=== PATIENT | female | born 1950 | race Caucasian/White ===

== ENCOUNTER 2023-12-19 04:46 | Emergency (ER) | payer MEDICARE ==
[2023-12-19 06:07] LABS: Hematocrit 31.5 % (34.9-44.5); Hemoglobin 9.7 g/dL (12.0-15.5); Mean Corpuscular HGB CONC 30.8 g/dL (32.0-36.0); Mean Corpuscular Volume 94.3 fl (81.6-98.3); Mean Platelet Volume 13.2 fl (7.4-10.4); Platelet Count 231 10x3/uL (150-450); Red Blood Cell (RBC) Count 3.34 10x6/uL (3.90-5.03); White Blood Cell (WBC) Count 31.9 10x3/uL (3.5-10.5)
[2023-12-19 06:09] LABS: ALT (SGPT) Less than 7 U/L (8-55); AST (SGOT) 13 U/L (5-34); Albumin 1.9 g/dL (3.4-4.8); Alkaline Phosphatase 460 U/L (40-110); Anion Gap 15 mmol/L (10-20); BUN (Urea Nitrogen) 44 mg/dL (9.8-20.1); Bilirubin, Total 0.3 mg/dL (0.2-1.2); Calc. Creatinine Clearance 0 mL/min (70-130); Calcium 8.1 mg/dL (7.8-10.44); Carbon Dioxide 11 mmol/L (23-31); Chloride 118 mmol/L (98-107); Estimated GFR 10; Globulin 3.2 g/dL (2.4-3.5); Potassium 3.4 mmol/L (3.5-5.1); Protein, Total 5.1 g/dL (5.8-8.1); Sodium 141 mmol/L (136-145)
[2023-12-19 06:12] LABS: MDiff Complete? YES
[2023-12-19 06:25] LABS: Critical Call Chemistry ERS.SM1@0625; Glucose 52 mg/dL (83-110)
[2023-12-19 06:34] LABS: Anisocytosis SLIGHT = 6-15 cells (100X) (0-5/hpf); Hypochromia SLIGHT = 6-15 cells (100X) (0-5/hpf); Macrocytosis SLIGHT = 6-15 cells (100X) (0-5/hpf); Microcytosis SLIGHT = 6-15 cells (100X) (0-5/hpf); Ovalocytes SLIGHT = 2-5 cells (100X) (0-1/hpf); Platelet Adequacy Comment Appears Adequate
[2023-12-19 06:35] LABS: Band 16 % (5-11); Lymphocytes 6 % (21-51); Metamyelocyte 1 % (0-0); Monocytes 9 % (0-10); Neutrophil 68 % (42-75)
[2023-12-19] MEDS ORDERED: Ondansetron PF 4 MG/2 ML Vial ONE (08:01)
[2023-12-19] MEDS ORDERED: fentaNYL 50 mcg/mL 1 mL Vial ONE (08:01)
== END 2023-12-19 08:49 | disposition short-term general hospital (02) ==
LOC: CSHERS 04:46
DX: S02.609A Fracture of mandible, unspecified, initial encounter for closed fracture (principal); S06.5XAA Traumatic subdural hemorrhage with loss of consciousness status unknown, initial encounter; E11.649 Type 2 diabetes mellitus with hypoglycemia without coma; E11.22 Type 2 diabetes mellitus with diabetic chronic kidney disease; I12.9 Hypertensive chronic kidney disease with stage 1 through stage 4 chronic kidney disease, or unspecified chronic kidney disease; N18.9 Chronic kidney disease, unspecified; Z79.4 Long term (current) use of insulin; W19.XXXA Unspecified fall, initial encounter
CPT/HCPCS: 70450; 72125; 80053; 83605; 85025; 93005; J3010; 36416; 96374; 96375; J2405